=== PATIENT | female | born 1945 | race Caucasian/White ===

== ENCOUNTER 2022-09-15 10:32 | Emergency (ER) | payer MEDICARE, OTHER, SELFPAY ==
[2022-09-15 10:51] VITALS: BP 161/68; PULSE 57; RESP 18; TEMP 36.1; O2SAT 99
[2022-09-15 11:06] VITALS: BP 161/68; PULSE 57; RESP 18; TEMP 36.1; O2SAT 99
--- NOTE | 2022-09-15 11:32 | ED.URI ---
HPI - URI/Sore Throat General Chief Complaint: Upper Respiratory Infection Stated Complaint: Cough,Congestion,Shortness of Breath Time Seen by Provider: 09/15/22 11:19 Source: patient Mode of arrival: ambulatory Limitations: no limitations History of Present Illness HPI Narrative: Patient presents today complaining of an 8 day history of sore throat, nasal congestion, nonproductive cough, and shortness of breath with exertion. Denies fever. She also reports some anterior rib pain only when she coughs. States she is supposed to go out of town for a granddaughter's graduation and wanted to get something to make her symptoms better. She has been taking Robitussin DM without relief. Denies any history of asthma or COPD. She is a former smoker. Related Data Home Medications Medication Instructions Recorded Confirmed amlodipine 2.5 mg tablet 2.5 mg PO DAILY 09/15/22 09/15/22 bupropion HCl 100 mg tablet,12 hr 100 mg PO DAILY 09/15/22 09/15/22 sustained-release (Wellbutrin SR) docusate sodium 100 mg capsule 100 mg PO DAILY 09/15/22 09/15/22 fluticasone propionate 50 2 spray intranasal DAILY 09/15/22 09/15/22 mcg/actuation nasal spray,suspension hydrochlorothiazide 25 mg tablet 25 mg PO DAILY 09/15/22 09/15/22 meloxicam 15 mg tablet 15 mg PO DAILY 09/15/22 09/15/22 metoprolol succinate 50 mg 50 mg PO DAILY 09/15/22 09/15/22 tablet,extended release 24 hr pantoprazole 40 mg tablet,delayed 40 mg PO DAILY 09/15/22 09/15/22 release potassium chloride 20 mEq 20 meq PO DAILY 09/15/22 09/15/22 tablet,extended release(part/cryst) pravastatin 20 mg tablet 20 mg PO DAILY 09/15/22 09/15/22 Allergies Allergy/AdvReac Type Severity Reaction Status Date / Time Penicillins AdvReac Mild Hives Verified 09/15/22 10:52 Sulfa (Sulfonamide AdvReac Mild Hives Verified 09/15/22 10:52 Antibiotics) Review of Systems Review of Systems: CONSTITUTIONAL: Denies body aches, fever, chills, or sweats. EYES: Denies visual changes, redness, or discharge. ENT: Denies rhinorrhea, or otalgia.+ Congestion, sore throat CARDIOVASCULAR: Denies chest pain, palpitations, or edema. RESPIRATORY: + cough, shortness of breath with exertion, rib pain GASTROINTESTINAL: Denies abdominal pain, nausea, vomiting, or diarrhea. GENITOURINARY: Denies dysuria or hematuria. SKIN: Denies rash, itching, or wounds. MUSCULOSKELETAL: Denies back pain, joint pain, or myalgia. NEUROLOGIC: Denies headache, numbness, tingling, or weakness. PSYCH: Denies depression or anxiety. [facility] Social History Social History Smoking status: Former smoker Smoking end date: 10/15/98 Comments At time of signature, I have reviewed and agree with nursing past medical, surgical, social and family history unless otherwise noted. Please see nursing chart for further information. There is no relevant family history pertinent to the presenting complaint Exam Narrative: GENERAL: Well-appearing, well-nourished, and in no acute distress. HEAD: Normocephalic, atraumatic. EYES: EOMI. No redness or drainage. Conjunctivae normal. ENT: Mucous membranes pink and moist. Nares clear. No rhinorrhea. TMs normal bilaterally. Throat normal. Uvula midline. NECK: Normal AROM. Supple. No lymphadenopathy. CHEST: No respiratory distress. Clear to auscultation. frequent nonproductive tight cough HEART: Regular rate and rhythm. No murmur appreciated. Normal peripheral pulses. EXTREMITIES: Normal range of motion. No edema. SKIN: Warm, dry, no rash. Capillary refill normal. Normal skin turgor. NEURO: No focal deficits. Alert and oriented x3. Gait steady. PSYCH: Normal affect. No signs of depression or anxiety. Course Course Level of Care: Express Care Visit Vital Signs Vital signs: Vital Signs Temperature 96.9 F L 09/15/22 10:51 Pulse Rate 57 L 09/15/22 10:51 Respiratory Rate 18 09/15/22 10:51 Blood Pressure 161/6
== END 2022-09-15 11:38 | disposition home or self-care (01) ==
PROVIDERS: Emergency Provider Nurse Practitioner; PCP Internal Medicine
DX: J40 Bronchitis, not specified as acute or chronic (principal); Z87.891 Personal history of nicotine dependence; Z79.1 Long term (current) use of non-steroidal anti-inflammatories (NSAID)
CPT/HCPCS: 99213; G0463